=== PATIENT | female | born 1990 | race Hispanic/Latino ===

== ENCOUNTER 2021-11-23 20:48 | Emergency (ER) | payer SELFPAY | END 2021-11-23 21:53 | disposition home or self-care (01) | LOC: CSHERS 20:48 | DX: J02.9 Acute pharyngitis, unspecified (principal); H66.93 Otitis media, unspecified, bilateral; J30.2 Other seasonal allergic rhinitis; I10 Essential (primary) hypertension | CPT/HCPCS: 99282 ==